=== PATIENT | female | born 1985 | race Caucasian/White ===

== ENCOUNTER 2018-04-14 19:10 | Inpatient (IN) | payer BC ==
[2018-04-14 19:40] VITALS: BMI 33.0
[2018-04-14 20:11] LABS: Amnisure Test RUPTURE DETECTED (No Rupture)
[2018-04-14 20:12] LABS: Amnisure Internal Control QC ACCEPTABLE (ACCEPTABLE)
--- NOTE | 2018-04-14 21:22 | PDOC.LDHP ---
Labor and Delivery H&P Chief complaint: loss of fluid HPI: Patient reports a leaking of fluid that is clear starting at 0300 and again at 0800. the baby was moving normally and she was afrebirle for the entire day. she did not experience any contractions during this time. At 1730 she was instructed to go to L&D for Amnisure testing. Current gestational age (weeks): 40 (and 6 days) Due date: 04/08/18 Dating criteria: last menstrual period Grav: 1 Para: 0 OB History Details: not applicable. Current complications: other (ABU at NOB visit Treated) Abnormal US findings: No Past Medical History: negative Current medications: pre- vitamins Previous surgical history: none Allergies/Adverse Reactions: Allergies Allergy/AdvReac Type Severity Reaction Status Date / Time No Known Allergies Allergy Verified 04/14/18 20:04 Social history: alcohol use (1 drink per week prior ot ) - Physical Exam Vital signs reviewed and normal: yes General: resting Heart: RRR Lungs: nonlabored breathing Abdomen: gravid Extremeties: pitting edema FHT: category 1 (baseline 130, positive accelerations, no decelerations) - Vaginal Exam cm dilated: 1 Effacement: 50% Station: -3 - OB Labs Blood type: A RH: positive Antibody Screen: negative HIV: negative RPR: negative HEPSAg: negative 1 hour GCT: negative GBS: negative Urine drug screen: not done Rubella: immune - Assessment L&D Assessment: term rupture in membranes (PROM) - Plan Plan: admit to L&D (Low intervention protocols.), cervical ripening (using dilipan cervical ripening stick inserted under sterile conditions) -: A: at 40w6d with PROM P cervical ripening for 12 hours low intervention protocols d/c cervical ripening dilipans at 0900 on 04/15/18. Start pitocin if not in labor, which would require moving to LDR room for continuous monitoring.
[2018-04-14 23:31] LABS: Hemoglobin 12.2 g/dL (12.0-16.0); Mean Corpuscular HGB CONC 34.4 g/dL (32.0-36.0); Mean Corpuscular Hemoglobin 28.3 pg (27.0-31.0); Mean Corpuscular Volume 82.4 fL (78.0-98.0); Mean Platelet Volume 9.6 fL (7.4-10.4); Platelet Count 203 thou/uL (130-400); RBC Distribution Width 13.5 % (11.5-14.5); Red Blood Cell (RBC) Count 4.32 mill/uL (4.20-5.40); White Blood Cell (WBC) Count 12.3 thou/uL (4.8-10.8)
[2018-04-15] LABS: Syphilis Antibody Nonreactive (Nonreactive); Syphilis Antibody Index 0.04 S/CO (<1.00 Non-Reactive)
[2018-04-15 02:03] LABS: HBSAg Index 0.21 S/CO (0-0.99); Hep B Surf Ag Non-Reactive S/CO (NonReactive)
[2018-04-15] MEDS ORDERED: Ibuprofen 800 MG TAB PO PRN (08:42)
[2018-04-15] MEDS ORDERED: Methylergonovine 0.2 MG/ML VIAL IM PRN (08:42)
[2018-04-15] MEDS ORDERED: Misoprostol 200 MCG TAB PR PRN (08:42)
[2018-04-15] MEDS ORDERED: NS / Oxytocin 40 units/1000ml 1,000 ML IV PRN (08:42)
[2018-04-15] MEDS ORDERED: HYDROcodone/Acetaminophen 5/325 mg Tablet PO PRN ×2 (08:42)
[2018-04-15] MEDS ORDERED: Ondansetron HCl/PF 4 MG/2 ML Vial IVP PRN (08:44)
[2018-04-15] MEDS ORDERED: Promethazine HCl 25 MG/ML VIAL IM PRN (08:44)
[2018-04-15] MEDS: Lactated Ringer's 1,000 ML IV SCH (09:18)
[2018-04-15] MEDS: NS w/ Oxytocin 10 units 500 ML IV SCH ×2 (09:18→20:22)
[2018-04-15] MEDS ORDERED: Lidocaine 1% (PF) 30 ML VIAL ONE (18:05)
[2018-04-15] MEDS: Butorphanol Tartrate 1 MG/ML VIAL SLOW IVP PRN ×2 (22:05→22:30)
--- NOTE | 2018-04-15 22:35 | PDOC.OPDEL ---
OB Operative/Delivery Note Delivery Dr/Surgeon: TRINH Scott Pre-Delivery Diagnosis: ruptured membrane (with augmentation) Weeks gestation: 41 Anesthesia: none - Findings A Sex: female - Additional Findings/Plan Placenta delivered: spontaneous Repaired Obstetrical Laceration: 1st degree (not reparied - hemostatic) Estimated blood loss: 200 Post delivery plan: routine recovery
[2018-04-15] MEDS ORDERED: Naloxone HCl 0.4 mg/ml Vial ONE (22:53)
[2018-04-15] MEDS ORDERED: Naloxone HCl 0.4 mg/ml Vial IV SCH (23:00)
[2018-04-16] MEDS ORDERED: Measles/Mumps/Rubella 10 MCG/0.5 ML VIAL SC ONE (00:48)
[2018-04-16] MEDS ORDERED: Bisacodyl 10 MG SUPP PR PRN (00:48)
[2018-04-16] MEDS ORDERED: NS / Oxytocin 40 units/1000ml 1,000 ML IV SCH (00:48)
[2018-04-16] MEDS ORDERED: Ondansetron HCl/PF 4 MG/2 ML Vial IVP PRN (00:48)
[2018-04-16] MEDS ORDERED: Misoprostol 200 MCG TAB VAG PRN (00:48)
[2018-04-16] MEDS ORDERED: Methylergonovine 0.2 MG/ML VIAL IM PRN (00:48)
[2018-04-16] MEDS ORDERED: Benzocaine/Menthol 20-0.5% 60 ML CAN TOP PRN (00:48)
[2018-04-16] MEDS ORDERED: HYDROcodone/Acetaminophen 5/325 mg Tablet PO PRN ×2 (00:48)
[2018-04-16] MEDS ORDERED: Milk Of Magnesia 30 ML UDCUP PO PRN (00:48)
[2018-04-16] MEDS ORDERED: Adacel (T-DAP) 0.5 ML VIAL IM ONE (00:48)
[2018-04-16] MEDS: Lactated Ringer's 1,000 ML IV SCH (01:16)
[2018-04-16 05:48] LABS: Hemoglobin 10.9 g/dL (12.0-16.0); Mean Corpuscular HGB CONC 33.5 g/dL (32.0-36.0); Mean Corpuscular Hemoglobin 27.5 pg (27.0-31.0); Mean Corpuscular Volume 82.2 fL (78.0-98.0); Mean Platelet Volume 8.9 fL (7.4-10.4); Platelet Count 210 thou/uL (130-400); RBC Distribution Width 13.3 % (11.5-14.5); Red Blood Cell (RBC) Count 3.95 mill/uL (4.20-5.40); White Blood Cell (WBC) Count 20.1 thou/uL (4.8-10.8)
[2018-04-16] MEDS: Ibuprofen 800 MG TAB PO SCH ×3 (06:38→21:48)
[2018-04-16] MEDS: Ferrous Sulfate 325 MG TAB PO SCH ×2 (08:00→18:08)
[2018-04-16] MEDS: Docusate Calcium (SURFAK) 240 MG CAP PO SCH ×2 (11:17→21:48)
[2018-04-16] MEDS: Prenatal Vitamin 1 TAB PO SCH (11:17)
[2018-04-16 21:21] VITALS: TEMP 97.8
--- NOTE | 2018-04-16 22:18 | PDOC.PP ---
Post Progress Note Post Day #: 1 Subjective: patient is doing well. no concerns. peeing and passing gas. PO intake tolerated: yes Flatus: yes Ambulation: yes Vital Signs (12 hours) Temp Pulse Resp BP Pulse Ox 04/16/18 20:10 97.8 F 75 20 140/66 04/16/18 17:15 98.1 F 73 12 126/59 L 04/16/18 16:00 98.1 F 73 12 04/16/18 12:00 96.5 F L 59 L 16 04/16/18 11:00 96.5 F L 59 L 16 126/68 96 Weight Weight 217 lb - Physical Examination General: NAD Cardiovascular: no m/r/g Respiratory: non-labored breathing Abdominal: lochia (moderate) Fundus firm & at: -1 Extremities: negative homans (B) Psychiatric: A&Ox3 Result Diagrams: 04/16/18 05:01 Additional Labs: Post Labs Blood Type A POSITIVE 04/14/18 21:50 Hep Bs Antigen Non-Reactive S/CO (NonReactive) 04/14/18 21:50 (1) (spontaneous vaginal delivery) Code(s): O80 - ENCOUNTER FOR FULL-TERM UNCOMPLICATED DELIVERY Status: Acute (2) Prolonged rupture of membranes Code(s): O42.90 - OLIVER ROM, 7TH0 BETW RUPT & ONST LABR, UNSP WEEKS OF GEST Status: Acute (3) Premature rupture of membranes Code(s): O42.90 - OLIVER ROM, 7TH0 BETW RUPT & ONST LABR, UNSP WEEKS OF GEST Status: Acute (4) Primigravida Code(s): Z34.00 - ENCNTR FOR SUPRVSN OF NORMAL FIRST , UNSP TRIMESTER Status: Acute - Assessment/Plan A: G1 now P1 sp following PROM and prolonged rupture P: routine care. Assistance with provided at the bedside.
[2018-04-17] MEDS: Ibuprofen 800 MG TAB PO SCH ×2 (05:39→14:39)
[2018-04-17 08:27] VITALS: BP 124/70
[2018-04-17] MEDS: Docusate Calcium (SURFAK) 240 MG CAP PO SCH (09:25)
[2018-04-17] MEDS: Prenatal Vitamin 1 TAB PO SCH (09:25)
[2018-04-17] MEDS: Ferrous Sulfate 325 MG TAB PO SCH (09:25)
== END 2018-04-17 15:56 | disposition home or self-care (01) | DRG 775 ==
LOC: L&D/OP 19:10 → L&D-LIB 04-15 00:05 → L&D 04-15 08:54 → 3SE 04-16 00:53
PROVIDERS: ADMIT Student in an Organized Health Care Education/Training Program; ATTEND Student in an Organized Health Care Education/Training Program
PROC: 10E0XZZ Delivery of Products of Conception, External Approach (ICD-10-PCS; principal; 2018-04-15)
PROC: 0HQ9XZZ Repair Perineum Skin, External Approach (ICD-10-PCS; 2018-04-15)
DX: O42.12 Full-term premature rupture of membranes, onset of labor more than 24 hours following rupture (principal); O48.0 Post-term pregnancy; Z37.0 Single live birth; O70.0 First degree perineal laceration during delivery; Z3A.41 41 weeks gestation of pregnancy
CPT/HCPCS: 36415; 84112; 85027; 86780; 86850; 86900; 86901; 87340; J0595; J2001; J2310